=== PATIENT | male | born 2000 | race Caucasian/White ===

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

== ENCOUNTER → 2022-01-11 | Outpatient (CLI) | payer OTHER, SELFPAY ==
--- NOTE | 2022-01-11 16:26 | MRI_ITS ---
STUDY: MRI RIGHT ANKLE WITHOUT CONTRAST REASON FOR EXAM: Male, 21 years old. Pain TECHNIQUE: Standarized fat and water weighted pulse sequences were obtained in all 3 orthogonal plane without intravenous administration of contrast material. COMPARISON: None. FINDINGS: Normal subcutis adipose space. There is tenosynovitis of the posterior tibialis tendon sheath with an intrinsic normal tendon. Normal flexor digitorum longus tendon. There is tenosynovitis of the flexor hallucis longus tendon sheath, with an intrinsically normal tendon. Normal peroneus longus and brevis tendons. Normal tibialis anterior tendon. Normal extensor hallucis longus tendon. Normal extensor digitorum longus tendons. Normal Achilles tendon and teno-osseous insertion. Normal plantar fascia. Normal plantar calcaneal tubercles. Normal intrinsic muscles of the rearfoot. Normal distal tibiofibular syndesmotic ligamentous complex. Normal lateral ligamentous complex. Normal subtalar ligaments and sinus tarsi. Normal deltoid ligamentous complexes. Normal plantar calcaneonavicular (spring) ligament. Normal tibiotalar articulation. Normal talar dome. Normal subtalar articulations. Normal talonavicular articulation. Normal calcaneocuboid articulation. Normal navicular-cuneiform articulations. There is no abnormal contrast enhancement. MRI/Lower Ext Joint Only (Routine) IMPRESSION: There is tenosynovitis of the posterior tibialis tendon sheath with an intrinsic normal tendon. There is tenosynovitis of the flexor hallucis longus tendon sheath, with an intrinsically normal tendon. Electronically Signed: Pedro Nicolas MD at 18:42 EDT ,
== END | disposition home or self-care (01) ==
LOC: MRI 16:10
PROVIDERS: PCP Nurse Practitioner; Visit Provider Student in an Organized Health Care Education/Training Program
DX: M25.571 Pain in right ankle and joints of right foot (principal); M65.89 Other synovitis and tenosynovitis, multiple sites; S93.491A Sprain of other ligament of right ankle, initial encounter
CPT/HCPCS: 73721

== ENCOUNTER → 2022-04-25 | Outpatient (CLI) | payer OTHER, SELFPAY ==
--- NOTE | 2022-04-25 14:57 | MRI_ITS ---
STUDY: MRI LEFT KNEE REASON FOR EXAM: Male, 21 years old. Center of knee with sharp pain and aching MENISCAL TEAR TECHNIQUE: Standardized fat and water weighted pulse sequences were obtained in all 3 orthogonal planes. COMPARISON: MRI of the left knee dated September 16, 2020 FINDINGS: Mild intrasubstance swelling and signal abnormality is present at the root insertion of the posterior horn of medial meniscus. Normal body and posterior horn of the medial meniscus. Normal hyaline cartilage of the medial femorotibial compartment. Normal medial femoral condyle and tibial plateau. Normal medial collateral ligamentous complex (MCL). Normal distal semimembranosus, gracilis and semitendinosus tendons. Normal lateral meniscus. Normal hyaline cartilage of the lateral femorotibial compartment. Normal lateral femoral condyle and tibial plateau. Normal proximal tibiofibular articulation. Normal lateral collateral (fibular) ligament. Normal popliteus tendon. Normal biceps femoris tendon. Normal anterior cruciate ligament (ACL). Normal posterior cruciate ligament (PCL). There is a patella ellen deformity. Normal hyaline cartilage of the patellofemoral compartment. Normal medial and lateral patellar retinaculum. Normal quadriceps tendon. A small linear tear is present in the central to posterior fibers of the origin of the patellar tendon, with mild to moderate thickening of the surrounding an affected fibers. Normal remaining aspects of the patellar tendon. Normal Hoffa''s fat pad. Small joint effusion. Tiny Wilkerson''s cyst noted. No marrow edema or occult fracture or osteochondral defect is present. The soft tissues are unremarkable. The otherwise visualized osseous structures are unremarkable. MRI/Lower Ext Joint Only (Routine) IMPRESSION: 1. Patella ellen deformity/high riding patella. 2. Small tear with mild to moderate patellar tendinosis at the origin of the patellar tendon, unchanged from the prior study. 3. Mild intrasubstance swelling and signal abnormality is present at the root insertion of the posterior horn of medial meniscus. Normal body and posterior horn of the medial meniscus. Electronically Signed: Dex Whitley MD at 12:06 EDT ,
== END | disposition home or self-care (01) ==
LOC: MRI 14:47
PROVIDERS: PCP Nurse Practitioner; Visit Provider Orthopaedic Surgery
DX: S83.242A Other tear of medial meniscus, current injury, left knee, initial encounter (principal)
CPT/HCPCS: 73721

== ENCOUNTER 2022-06-27 06:00 | Day surgery (SDC) | payer OTHER, SELFPAY ==
[2022-06-27] VITALS (7 sets, daily range): BP systolic 121–149; BP diastolic 56–97; PULSE 62–73; RESP 16–18; TEMP 36.6–37; O2SAT 98–100; BMI 27.3
[2022-06-27] MEDS: Lactated Ringers 1,000 ML 15 ML IV (06:15)
--- NOTE | 2022-06-27 07:10 | HP.PCM_ITS ---
HPI - General HPI Narrative VERONICA ESQUIVEL, is a 21 M who presents for left knee arthroscopy. No changes to h and P. Consent updated. Left knee marked. Here with mom. OK to proceed. R#: [id number] Acct: [id number] Name:VERONICA CLAYTON Rep #: [id number] : 2000 ? ? Provider: Dr. Francois Hudson MD Age/Sex:? 21/M ? ? Location: [facility] [place] Status: Signed Intake Intake Visit Reasons:?knee pain Chief Complaint: Allergies No Known Allergies Allergy (Verified 05/11/22 14:12) Medications levocetirizine 5 mg tablet (Xyzal) 5 mg PO DAILY 09/08/20 [History Confirmed 05/11/22] PFSH Medical History?(Updated 05/11/22 @ 15:44 by Francois Hudson MD) Bilateral headaches Environmental allergies Patellar tendinitis, left knee Shoulder pain Superior labrum vkaltqaf-df-zeczfzlhi (SLAP) tear of right shoulder Tear of medial meniscus of left knee Surgical History? History of tonsillectomy and adenoidectomy History of tonsillectomy and adenoidectomy S/P nasal surgery Family History? Other Arthritis Hypertension Thyroid disorder Social History? Smoking Status:? Never smoker alcohol intake:? never substance use type:? does not use what type of physical activity do you participate in:? running and weight training frequency:? 5-6 times per week HPI knee pain Details: Parts of this documentation were recorded by a scribe, this documentation accurately reflects the service provided and the decisions made by me, Dr. Francois Hudson MD 05/11/22 [id number]. VERONICA EQSUIVEL is a 21 year old M here today for left knee pain. Notes reviewed from Dr. Mary. Started in the spring, playing pickup basketball, got bad in February. Pain is located anteriorly in the knee. Some pain on the medial side with activity. But more so aches and pain center of the knee, worse with stairs. 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 Not one injury. Swelling - not anything crazy. No locking up or hamming up. Worse with a certain bending. Worse the full deep knee bend. Mostly center, with twisting then medially.? He is trying some physical therapy strengthening as well as oral medications for this.? 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 He does have to do some occasional hard throwing.? He has to be down with extreme knee flexion a lot of the time. He does feel like the anterior knee pain resolved with a past right medial meniscus repair performed by Dr. Mary. In terms of the right shoulder he had a past a right shoulder arthroscopy circumferential labral repair including SLAP repair.? Apparently he has multijoint laxity he was having a bit of a loose shoulder before it feels a little bit tighter now but eventually loosened up as well worse with light throwing phases but does not frankly come out.? There is pain decreased velocity there. Ortho Exam General General: Yes no acute distress Neurologic: Yes alert and Yes oriented x3 Psychologic: Yes reasonable and appropriate Right Knee Patella Translation: 2 Left Knee Skin/Wound: Yes CDI, No ecchymosis, No erythema and No swelling Knee ROM: Yes ROM-Flexion 0-140 Examination: Yes med jt line tenderness, No Lat jt line tenderness, Yes TTP inf pole patella, No Crepitus, Yes Pain with flexion, No Zuleyma's Test, No Dial at 90, No Dial at 60, Yes TTP Patellar tendon, No TTP Tibial tubercle, No TTP Pes Anserine and No Illiotibial band tenderness Quad Atrophy: No Stability: NML: Anterior Drawer, NML: Lila, NML: Posterior Drawer, NML: Valgus 0, NML: Valgus 30, NML: Varus 0 and NML: Varus 30 Apprehension with Lateral Translation: No Patella Translation: 2 Patellar Tilt Normal: Yes Patella Grind: No KNEE: He does have some mild medial joint line tenderness in the mid aspect of the medial joint line but most of his pain seems to be centered at the proximal aspect of the patellar tendon along the anterior aspect of the knee and worsened with deep knee bending.? Normal sensation motor function of the foot foot is warm and well-perfused.? Quadriceps tendon appears strong.? No pain at the patella itself or at the quadriceps tendon insertion area.? There is little bit of a click with knee range of motion testing seeming to arise from the patellofemoral joint but otherwise it is tracking normally with no J sign. Right Shoulder Skin/Wound: Yes CDI, No ecchymosis, No erythema and No swelling Testing: Positive AROM-Forward Elevation 0-180, AROM-External Rotation at side 0-60, jerk and Ovid; Negative Hawkin's, Neer's, Speed's, TTP Biceps, TTP AC Joint, Drop Arm, Apprehension Test, Sulcus Sign, translation, empty can or Load and Shift SHOULDER: Negative apprehension test.? Negative anterior tutq-pbt-ejdbm test.? He had a little bit of a click with posterior jerk test I would say this is positive but not frankly loose posteriorly.? Strength in forward elevation and external rotation are strong 5/5 although circumduction with a posteriorly directed force related causing quite a bit of pain. Supplemental Info MR#:? [id number] Acct: [id number] Name:? VERONICA ESQUIVEL Rep #: [id number] :?? 2000 M 21 ? From:? ? Dex Whitley MD PCP: IGNACIO Ramirez ? Status: REG CLI Study: Lower Ext Joint Only (Routine) ? Date of Exam: 04/25/22 Exam# [id number] ? Ordering Dr:? Rajani Mary DO STUDY:? MRI LEFT KNEE REASON FOR EXAM:? Male, 21 years old.? Center of knee with sharp pain and aching MENISCAL TEAR TECHNIQUE:? Standardized fat and water weighted pulse sequences were obtained in all 3 orthogonal planes. COMPARISON:? MRI of the left knee dated September 16, 2020 FINDINGS: Mild intrasubstance swelling and signal abnormality is present at the root insertion of the posterior horn of medial meniscus.? Normal body and posterior horn of the medial meniscus.? Normal hyaline cartilage of the medial femorotibial compartment.? Normal medial femoral condyle and tibial plateau. Normal medial collateral ligamentous complex (MCL).? Normal distal semimembranosus, gracilis and semitendinosus tendons. Normal lateral meniscus.? Normal hyaline cartilage of the lateral femorotibial compartment.? Normal lateral femoral condyle and tibial plateau. Normal proximal tibiofibular articulation.? Normal lateral collateral (fibular) ligament.? Normal popliteus tendon.? Normal biceps femoris tendon. Normal anterior cruciate ligament (ACL).? Normal posterior cruciate ligament (PCL). 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 Normal hyaline cartilage of the patellofemoral compartment.? Normal medial and lateral patellar retinaculum. Normal quadriceps tendon.? A small linear tear is present in the central to posterior fibers of the origin of the patellar tendon, with mild to moderate thickening of the surrounding an affected fibers.? Normal remaining aspects of the patellar tendon.? Normal Hoffa''s fat pad. Small joint effusion.? Tiny Wilkerson''s cyst noted.? No marrow edema or occult fracture or osteochondral defect is present.? The soft tissues are unremarkable.? The otherwise visualized osseous structures are unremarkable. MRI/Lower Ext Joint Only (Routine) IMPRESSION: 1.? Patella ellen deformity/high riding patella. 2.? Small tear with mild to moderate patellar tendinosis at the origin of the patellar tendon, unchanged from the prior study. 3.? Mild intrasubstance swelling and signal abnormality is present at the root insertion of the posterior horn of medial meniscus.? Normal body and posterior horn of the medial meniscus. ? Electronically Signed: Dex Whitley MD at 12:06 EDT Reading Location ID and State: [facility] / [place] , Service support? , ? reviewd MRI personally, agree with interpretation.? There also seems to be a worsening of the partial undersurface tearing of the proximal aspect of the undersurface patellar tendon as compared to prior MRI from September 2020. I also reviewed a noncontrast MRI right shoulder no intra-articular dye this was taken on a 3 Nidhi magnet [facility] at the request of the his previous surgeon Dr. Mary. The report is fairly equivocal in terms of re- tear although there may be a small retear of the posterior labrum as well as re tear of the superior labrum at the biceps long head insertion indicating in my opinion likely re tear of the SLAP tear and failure of the repair.? There are multiple anchors that appear to be consistent with both repair of the anterior and posterior labrum as well as a SLAP repair.? Cartilage looks normal.? There is no obvious bone marrow edema to be consistent with recent subluxation or dislocations.? Bone quality appears abnormal no obvious bone loss of the glenoid or Hill-Sachs lesion.? 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 Coding Level of Care Code Off vis,new,level 4 Diagnoses Superior labrum xgogjgmb-lp-rojtpkebe (SLAP) tear of right shoulder? S43.431A Patellar tendinitis, left knee? M76.52 Tear of medial meniscus of left knee? S83.242A Time Spent (min) 45 Assessment and Plan Assessment and Plan (1) Superior labrum baxpbaug-qt-dnarpangg (SLAP) tear of right shoulder: ?Status:?Acute ?Plan: This 21-year-old male with sensations of loosening of his shoulder after circumferential labral repair he could have read tear or failure of the SLAP repair there.? Certainly this is very controversial in terms of what to do next in terms of the shoulder.? Even SLAP repair itself is controversial whether to perform this in throwing athletes.? Could consider right shoulder diagnostic arthroscopy possible revision repair of posterior anterior or superior labrum and or biceps tenodesis any of those things would be reasonable in this situation or trying to simply focus on rehabbing the shoulder is much as possible to avoid another period of 4-1/2 months of downtime.? We discussed all options and will go ahead with actually booking his left knee surgery. (2) Patellar tendinitis, left knee: ?Status:?Acute ?Plan: 21-year-old male with partial undersurface tearing of his patellar tendon pain from the anterior aspect of his knee as well as a possible medial meniscus tear with a medial sided joint line tenderness and some mechanical symptoms we discussed all options rest ice doing nothing anti-inflammatories physical therapy PRP injections as well as arthroscopy tendon debridement stimulation of a healing as well as addressing the medial meniscus tear with either repair or partial medial meniscectomy versus debridement.? He would like to go ahead with the left knee surgery I booked this for left knee arthroscopy, patellar tendon debridement stimulation of healing possible medial meniscus repair or partial meniscectomy.? He would like to the want to go ahead with this and in June we will submit for insurance company approval.? 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 Him and his mom understood had no further questions or concerns. Pros and cons risks and benefits were discussed with the patient including but not limited to infection, pain, stiffness, bleeding, damage to surrounding structures, neurovascular injury, recurrence or retear, failure or wear of hardware or fixation, instability, fracture, deep vein thrombosis and pulmonary embolism, anesthetic risks, patient dissatisfaction, need for further surgery and other risks.? Patient understood and wished to proceed with surgery, and signed the informed consent documentation. (3) Tear of medial meniscus of left knee: [facility] Medical History (Updated 06/25/22 @ 08:29 by Brunilda Esquivel) Environmental allergies Heartburn History of pain when walking Non-smoker Patellar tendinitis, left knee Shoulder pain Superior labrum izuqrapv-nr-mmmvsrzqd (SLAP) tear of right shoulder Tear of medial meniscus of left knee Thoracic outlet syndrome Home Medications levocetirizine 5 mg tablet (Xyzal) 5 mg PO DAILY 09/08/20 [History Last Taken Unknown] ascorbic acid (vitamin C) 1,000 mg chewable tablet 1 g PO DAILY 06/25/22 [History Last Taken Unknown] ibuprofen 800 mg tablet 800 mg PO Q6H PRN Pain 06/25/22 [History Last Taken Unknown] Allergy/AdvReac Type Severity Reaction Status Date / Time No Known Allergies Allergy Verified 06/27/22 06:23 Family History Other Arthritis Hypertension Thyroid disorder Surgical History (Updated 06/25/22 @ 08:29 by Brunilda Esquivel) History of medial meniscus repair of right knee History of tonsillectomy and adenoidectomy S/P nasal surgery Social History Smoking Status: Never smoker alcohol intake: never substance use type: does not use what type of physical activity do you participate in: running and weight training frequency: 5-6 times per week Vital Signs Vital Signs Vital Signs: 06/27/22 06:23 06/27/22 06:23 Temperature 97.8 F Temperature Source Temporal Pulse Rate 67 Respiratory Rate 18 Respiratory Pattern Normal Blood Pressure 133/94 H Blood Pressure Mean 107 Blood Pressure Source Monitor Blood Pressure Location Right Arm Pulse Ox 99 Oxygen Delivery Method Room Air Weight Weight: 196 lb 3.382 oz Body Mass Index (BMI) 27.3
[2022-06-27] MEDS: Epinephrine (1 mg/ml) 1 MG/ML VIAL (07:42)
[2022-06-27] MEDS: Cefazolin 2 GM in 0.9% Normal Saline 100 ML IV (07:42)
--- NOTE | 2022-06-27 08:22 | OP.PCM_ITS ---
Problems Associated Problem List Diagnoses (1) Patellar tendonitis of left knee: (2) Tear of medial meniscus of left knee: Report of Operation Date of Procedure: 06/27/22 Pre-Operative Diagnosis: left knee MM tear and patellar tendonitis Post-Operative Diagnosis: same Surgery/Procedure Performed:: left knee arthroscopy, medial meniscus repair, debridement patellar tendon Surgeon: Francois Hudson Type of Anesthesia: General and Local Anesthesiologist: Salvador Souza Estimated Blood Loss (mL): 10 Description of Procedure: Patient was brought to the operating room theater.? Placed supine on the operating room table.? All bony prominences appropriately padded.? SCD on the nonoperative side.? 2 g IV Ancef administered prior to the start of the procedure.? General anesthesia induced.? Stress positioner for the patient's left lower extremity.? Tourniquet applied to the thigh appropriately padded.? Left lower extremity prepped and draped in the usual sterile fashion with chlorhexidine-based prep solution allowing over 3 minutes drying time prior to draping.? Preoperative timeout performed to confirm the site patient and the surgery. Began by making standard anterolateral and anteromedial arthroscopy portals.? I examined the full intra-articular extent of the knee.? No loose bodies gutters normal.? Patellofemoral as well as medial lateral compartments appeared normal. Arthroscopy pictures taken and saved onto the system throughout the case. The small undersurface flap of the patellar tendon was identified and debrided through an accessory superomedial portal. I then used a spinal needle trephination at the origin of the patellar tendon to stimulate healing. Lateral meniscus was normal and stable to probing as was the ACL. Medial meniscus did appear to have increased excursion anteriorly with probing as well as a small amount of fraying and horizontal tear at the posterior aspect of the horn medial meniscus. A spinal needle trephination in this area as well as the meniscus rasp to prepare the capsule healing. I then used a [employer] reverse curved FasT-Fix all inside suture repair device to perform a horizontal mattress repair at the site of the tear. This was stable and solid to probing. Sutures cut short. Final arthroscopy pictures taken and saved onto the system. Tourniquet let down meticulous hemostasis achieved wound thoroughly irrigated subcutaneous portal closed with 3-0 Monocryl sutures 10 cc of quarter percent bupivacaine followed by Steri-Strips Adaptic 4 x 4 gauze abdominal pad dressing and sterile Juan Ramon bandage followed by a hinged knee brace appropriately placed with the leg in full extension. Patient woken up from the general anesthetic transferred off the operating room table and taken to postanesthetic care unit in stable condition. All sponge needle instrument counts were correct no complications. Plan for the patient we ightbearing as tolerated on crutches in full extension with passive range of motion of the knee 0 to 90 degrees under the direct supervision of physical for 6 weeks. Complications none Admit VTE Documentation VTE Present on Admission: No VTE Mechan Device Prophylaxis: SCD's Reason prophylaxis not ordered:: Treatment Not Indicated Procedures Musculoskeletal [id number]-29xxx: Other Procedure See Report
--- NOTE | 2022-06-27 08:28 | DCINST_ITS ---
Discharge Instructions Diet Discharge Diet: No restrictions Activity Discharge Activity: Use Crutches Additional Activity Instructions:: weight bearing as tolerated in full extension (straight) with knee brace, ok for passive ROM 0-90 with PT Dressing / Incision Call your doctor if your incision/area has: Continuous Slow Oozing, Sudden Increased Bleeding, Increased Pain/ Swelling, Increased Redness, Foul Smelling Discharge and Swelling at the incision site Change Dressing in: leave in place till F/U Follow Up Care Please Follow Up With: Francois Hudson MD When: 2 days Test Results: Test results from this visit will be discussed in further detail at your follow-up appointment, if applicable. Discharge Plan Admission Attending Provider: Francois Hudson Primary Care Provider: Luca Ryder NP Instructions Patient Instructions: After Knee Arthroscopy Discharge Orders/Prescriptions Prescriptions: New oxycodone-acetaminophen [Percocet] 5-325 mg tablet 1 tab PO Q4H MDD 6 PRN (Reason: pain) 7 Days Qty: 20 0RF No Action levocetirizine [Xyzal] 5 mg tablet 5 mg PO DAILY ibuprofen 800 mg Tablet 800 mg PO Q6H PRN (Reason: Pain) Vitamin C 1,000 mg Tablet,Chewable 1 g PO DAILY Referrals / Follow Up: Francois Hudson MD [Med Staff - Active Staff] - Luca Ryder NP, [employer] [Primary Care Provider] - Disposition Disposition (needs filled in before D/C Order can be placed): Home, Self Care
== END 2022-06-27 11:54 | disposition home or self-care (01) ==
LOC: SDC 06:01 → AC 06:02
PROVIDERS: PCP Nurse Practitioner; Referring Provider Orthopaedic Surgery Sports Medicine; Visit Provider Orthopaedic Surgery Sports Medicine
PROC: (CPT 29870; principal; 2022-06-27 07:10)
DX: S83.242A Other tear of medial meniscus, current injury, left knee, initial encounter (principal); M76.52 Patellar tendinitis, left knee; X58.XXXA Exposure to other specified factors, initial encounter; Y93.67 Activity, basketball
CPT/HCPCS: 29882; 01400; J7120; J2405

== ENCOUNTER 2022-09-13 16:30 | Outpatient (RCR) | payer OTHER, SELFPAY ==
--- NOTE | 2022-07-11 11:50 | HP.PTEVAL_ITS ---
Patient's Visit Information VERONICA TROTTER is a 21 year old M referred to Physical Therapy by Dr. Francois Hudson MD with a diagnosis of Left Meniscal Repair. Date of Evaluation: 07/11/22 Physical Therapist: Remedios Gracia DPT - Visit Plan Frequency: 2x /Week Duration: 4 Weeks Plan: Perform HEP- call if questions- no crutches at home- single or double outside due to poor weather conditions- will follow up with PT at 6 weeks. Left Medial Meniscus Repair. Per MD: WBAT in full extn and PROM only 0-90 degrees for 0-6 weeks post op (Aug 08). HEP Given IE: quad set, SLR, hamstring stretch - Subjective Left Sided Meniscal Tear and Patellar Tendon Debridement 06/27/22. Unsure of exactly when it happened- could have been baseball or basketball. He has had the same thing on his right in 2019 Dr. Mary. Got to college and he was running a lot and it got worse and worse. He has been wearing the brace since- he doesn't wear it sitting on his bed but when he is up and moving he wears it. He is sleeping in it. He is using crutches when he leaves his bedroom he is using his crutches. He reports that he is not currently having any pain in the knee. Last week he had some pain on Saturday but it went away quickly. Its been pretty good- Sleep: not disturbed. Does have some N/T in his foot but thinks its from a previous cut on his leg where the brace rubs. He did not give him any exercises to work on at home. He is going to [employer] in the spring so he will continue here for therapy. He is done playing baseball but now he is just going to school and wants to get back to normal activities and get back in the gym. 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 Fully I with all ADLs. Not taking and pain medications. Saw MD yesterday- happy with progress. No concerns. PMHx/Meds: no changes since surgery 06/27/22 at hospital - Objective Posture: fair throughout treatment. Gait: axillary crutches WBAT- TROM brace locked in extension- ambulation without axillary crutches in clinic was fair wi th decrease stance on left LE no pain. HR/TR: able. SLS: able with brace locked in extension. ROM: PROM: 0-90 degrees without resistance. Flex: HS: moderate, Gastroc: moderate. Observation: incision healing well no s/s of infection- no steri strips or sutures noted. Strength: Ankle: 5/5, Knee: Quad set good- SLR no lag, Hip: 4+/5. Girth: Patella: 40 cm 6 above: 54 cm - Balance/Special Test Scores Lower Extremity Functional Score: 32 - Goals Goal 1:: Patient will be I with HEP and progression Goal Time Frame: 12-16 Weeks Goal 2:: Patient will demo 0-120 degrees of left knee ROM (as allowed per MD) Goal Time Frame: 12-16 Weeks Goal 3:: Patient will demo equal quad girth to uninvolved LE (as allowed per MD) Goal Time Frame: 12-16 Weeks Goal 4:: Patient will ambulate >300 feet with no AD and no deviations Goal Time Frame: 12-16 Weeks Goal 5:: Patient will report 80% improvement Goal Time Frame: 12-16 Weeks - Rehabilitation Potential Physical Therapy Diagnosis: Patient presents s/p Left Meniscal Repair 06/25/22- he has decreased ROM, LE and core strength/stabilization, proprioception and flex leading to abnormal gait and dec ability to perform ADL's Rehabilitation Potential: Good - Anticipated Interventions Patient/Client Instruction: Educate patient on: Benefits of Fitness Program Therapeutic Exercise to Include: Strength training, Endurance training, Balance training, Coordination, Agility training, Body mechanics, Postural training, Flexibilty training, Gait and locomotor training, Neuromotor development, Dynamic Lumbar Stabilization, Violetta Exercises For the Purpose of:: To improve muscle performance and motor function TENS: Yes Cryotherapy (ice pack, ice massage): Yes Thermo therapy (hot pack): Yes Ultrasound (thermal/non thermal): No Thank you for the opportunity to evaluate your patient. For Medicare and Medicare HMO plans, please review the plan of care and approve it. It will need to be FAXED BACK to us at [phone] for Medicare purposes. For Medicare only, by signing this I certify the plan of care. Please let me know if there are questions or concerns regarding this plan of care. Physician Signature: Date:
--- NOTE | 2022-07-23 16:59 | HP.PTEVAL2_ITS ---
Patient's Visit Information VERONICA TROTTER is a 21 year old M referred to Physical Therapy by Dr. Francois Hudson MD with a diagnosis of PABLO UE THORACIC OUTLET SYNDROME. Date of Evaluation: 07/23/22 Physical Therapist: Deana Valentin PT, Cert MDT - Visit Plan Frequency: 2-3x /Week Duration: 4-6 Weeks Plan: POSTURE CORRECTION/STRENGTHENING, INSTRUCTION IN APPROPRIATE BODY MECHANICS AND ACTIVITY MODIFICATIONS. PABLO UE ROM, STRETCHING AND STRENGTHENING WITH FOCUS ON SCALENE STRETCHING AND 1ST RIB RELEASE. CONSIDER NECK RETRACTION ROM, NECK RETRACTION STRENGTHEING, PABLO SHLD T-BAND EXTERNAL ROTATION AND PEC STRETCHING. HEP INSTRUCTION. 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 PLAYING BASEBALL AT [employer] UNTIL KNEE INJURY FALL 2021. TRANSFERRED TO [employer] FOR SPRING 2022. DONE WITH BASEBALL. ALSO HAS H/O R SHLD SX FOR TORN LABRUM IN HIGH SCHOOL. Disability: NO. Present symptoms: PABLO UE NUMBNESS AND TINGLING RIGHT > LEFT. DENIES PABLO UE WEAKNESS. DENIES NECK PAIN. CONSTANT R SHLD PAIN (RE-TORE R LABRUM). PATIENT REPORTS THE NUMBNESS AND TINGLING SLOWLY MOVES DOWN HIS ARMS INTO HIS HANDS AND FINGERS WITH CERTAIN ACTIVITIES. SOMETIMES ONE ARM AT A TIME. SOMETIMES BOTH ARMS AT SAME TIME. HEADACHES ABOUT ONCE A WK FOR A DAY FROM UNKNOW CAUSE SINCE RE-INJURY OF R SHLD MAR 2022. Present since: SINCE 2018. HAVING SOME RIGHT UE SX'S EVEN BEFORE R SHLD INJURY. Pain Scale: Worst - 8/10 Least - 2/10. Currently: 2-3/10. Commenced as a result of: R SHLD INJURY AND RE-INJURY FROM BASEBALL. PABLO UE NUMBNESS AND TINGLING STARTED FOR NO APPARENT REASON. Worse: BEING ON PHONE IN BED, DRIVING, ANYTHING OVER- HEAD, LAYING WITH ARMS OVER-HEAD, SDLY - EITHER SIDE. 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 Better: WHEN ARMS ARE DOWN OR CHANGING POSITION. Disturbed sleep: YES. Previous history/Previous treatment: NONE. Dizziness: NO. Tinnitis: NO. Nausea: NO. Shortness of Breath: NO. Difficulty Swollowing: NO. Gait: USING ONE CRUTCH AND WEARING L KNEE BRACE S/P L KNEE MENISCUS REPAIR 12/14/22. Unexplained weight loss: NO. Imaging: ULTRASOUND 2019 R UE AND PABLO UE'S AGAIN JUN 2022 SHOWING PABLO UE THORACIC OUTLET SX L >R BUT RIGHT SX'S ARE GREATER LEFT. RECENT R SHLD MRI DX'ING NEW TEAR. NO NECK X-RAY OR MRI. PMH/Recent major surgery: SEE ABOVE. OTHER: HURT L KNEE BEFORE RE-HURT R SHLD. - Objective Objective: Sitting Posture/Standing Posture: POOR. Active Correction of posture: BETTER. Sensory deficit: PABLO UE LIGHT TOUCH SENSATION GROSSLY INTACT AND SYMMETRICAL. ROM deficit: PABLO UE'S WFL. Motor deficit: PABLO UE'S GROSSLY 5/5 WITH MMT'ING. R HAND DOMINANT WITH A RIGHT TRANSFORM[employer] STRENGTH OF 110 LBS AND LEFT 85 LBS. Reflexes: UNABLE TO ELICIT PABLO UE DTR'.S. Dural Signs: POSITIVE R UE. Cervical Mvmt Loss: Flex: NIL. Pro: NIL. Ext: MIN - PRODUCES R UE NUMBNESS/TINGLING. Ret: MIN TO MOD. RSB: MIN - PRODUCES R UE NUMBNESS/TINGLING. LSB: MIN. R Rot: NIL - PRODUCES R UE NUMBNESS/TINGLING. L Rot: NIL. Postural strength: FAIR. TREATMENT: NEUROMUSCULAR REEDUCATION - RETRAINING OF MVMT AND POSTURE FOR SITTING, LYING AND STANDING ACTIVITIES. INITIATED HEP WITH REP RET IS AND SCAP SQUEEZES X 10 TO 20 REPS EVERY ONE TO TWO HOURS TOLERATED. INSTRUCTED IN avoidance of PERIPHERALIZATION OF SX'S. PATIENT DEMONSTRATED/COMMUNICATED A GOOD UNDERSTANDING OF ALL INSTRUCTIONS AFTER GIVEN. - Goals Goal 1:: DECREASE C/O PABLO UE NUMBNESS AND TINGLING. Goal Time Frame: 4-6 Weeks Goal 2:: IMPROVE LIFTING, READING, WRITING, SLEEP AND REACHING FUNCTION. Goal Time Frame: 4-6 Weeks Goal 3:: INSTRUCT IN PROPHYLAXIS Goal Time Frame: 4-6 Weeks - Anticipated Interventions Patient/Client Instruction: Educate patient on: Condition, Plan of Care, Risk Factors For the Purpose of:: To improve self management Therapeutic Exercise to Include: Strength training, Body mechanics, Postural training, Flexibilty training, Scapular Strength/Stabilization For the Purpose of:: To decrease pain, To increase ROM, To improve muscle performance and motor function, To increase tolerance to activity/ condition/position, To improve ability of physical actions for home/community/work/leisure Manual Therapy Techniques to Include: Soft tissue mobilization Comment: JORGE For the Purpose of:: To increase ROM Thank you for the opportunity to evaluate your patient. For Medicare and Medicare HMO plans, please review the plan of care and approve it. It will need to be FAXED BACK to us at [phone] for Medicare purposes. For Medicare only, by signing this I certify the plan of care. Please let me know if there are questions or concerns regarding this plan of care. Physician Signature: Date:
--- NOTE | 2022-08-06 16:08 | HP.PTREVAL_ITS ---
Dr. Francois Hudson MD, It has been my pleasure to treat VERONICA TROTTER over the last 2 visits for Left Meniscal Repair. Please see the progress note below for an update on the physical therapy plan of care! Subjective: Goes back to work on Saturday (job is sitting and standing)- no more brace- continue PT. No pain in the knee. Patient feels his knee is 60% better. Objective/Function: Posture: fair throughout treatment. Gait: no brace and no deviation noted HR/TR: able. SLS: 15 sec with increased sway ROM: 0-125 degrees Flex: HS: moderate, Gastroc: moderate. Strength: Ankle: 5/5, Knee: Left: Extn: 54 Flexion: 50 Right: Extn 90 Flexion: 70 Hip: 4+/5. Girth: Patella: 38.5 cm 6 above: Left: 55 cm Right: 56.5 cm Plan Plan: 08/06/22: No restrictions- focus on LE and core strength/stabilization and proprioception. Perform HEP- call if questions- no crutches at home- single or double outside due to poor weather conditions- will follow up with PT at 6 weeks. Left Medial Meniscus Repair. Per MD: WBAT in full extn and PROM only 0- 90 degrees for 0-6 weeks post op (Aug 08). HEP Given IE: quad set, SLR, hamstring stretch Balance/Gait/Functional tests - Balance/Special Test Scores Oswestry Neck Score: 5 Lower Extremity Functional Score: 54 Goals Goal 1:: Patient will be I with HEP and progression Goal Time Frame: 12-16 Weeks Goal 2:: Patient will demo 0-120 degrees of left knee ROM (as allowed per MD) Goal Time Frame: 12-16 Weeks Goal 3:: Patient will demo equal quad girth to uninvolved LE (as allowed per MD) Goal Time Frame: 12-16 Weeks Goal 4:: Patient will ambulate >300 feet with no AD and no deviations Goal Time Frame: 12-16 Weeks Goal 5:: Patient will report 80% improvement Goal Time Frame: 12-16 Weeks Anticipated Interventions Patient/Client Instruction: Educate patient on: Benefits of Fitness Program Therapeutic Exercise to Include: Strength training, Endurance training, Balance training, Coordination, Agility training, Body mechanics, Postural training, Flexibilty training, Gait and locomotor training, Neuromotor development, Dynamic Lumbar Stabilization, Violetta Exercises For the Purpose of:: To improve muscle performance and motor function TENS: Yes Cryotherapy (ice pack, ice massage): Yes Thermo therapy (hot pack): Yes Ultrasound (thermal/non thermal): No Please do not hesitate to contact me at [phone] by phone or if you have questions or concerns regarding this new plan of care! Sincerely, CHRISTIAN MalloyT
--- NOTE | 2022-08-29 08:31 | HP.PT.NRP(2) ---
VERONICA TROTTER was seen in my office for initial evaluation on 07/23/22. The following Plan of Care was established for this patient: Initial Frequency: 2-3x /Week Initial Duration: 4-6 Weeks Plan from Re-Evaluation: POSTURE CORRECTION/STRENGTHENING, INSTRUCTION IN APPROPRIATE BODY MECHANICS AND ACTIVITY MODIFICATIONS. PABLO UE ROM, STRETCHING AND STRENGTHENING WITH FOCUS ON SCALENE STRETCHING AND 1ST RIB RELEASE. CONSIDER NECK RETRACTION ROM, NECK RETRACTION STRENGTHEING, PABLO SHLD T-BAND EXTERNAL ROTATION AND PEC STRETCHING. HEP INSTRUCTION. Patient/Client Instruction: Educate patient on: Condition, Plan of Care, Risk Factors For the Purpose of:: To improve self management Therapeutic Exercise to Include: Strength training, Body mechanics, Postural training, Flexibilty training, Scapular Strength/Stabilization For the Purpose of:: To decrease pain, To increase ROM, To improve muscle performance and motor function, To increase tolerance to activity/condition/position, To improve ability of physical actions for home/community/work/leisure Manual Therapy Techniques to Include: Soft tissue mobilization Comment: SCALENES For the Purpose of:: To increase ROM This patient was last seen in our office . Pertinent comments regarding their Physical therapy will appear below: This patient has not returned to Physical Therapy and is appropriate to return to MD for further follow-up as needed. At this point I will be discontinuing this patient from physical therapy. I would be happy to see this patient again in the future if found appropriate by the physician. Thank you! Deana Valentin, PT, Cert MDT
--- NOTE | 2022-09-13 16:41 | HP.PTDCSUM ---
It has been my pleasure to treat VERONICA TROTTER referred by Dr. Francois Hudson MD, with the diagnosis of Left Meniscal Repair for a total of 10 visit(s). Discharge Date: Please see the following information for a summary of their discharge status. Subjective: Patient feels his knee is 85-90% better- he is ready to be d/c and then will take a month off and start shoulder rehab. The only think he can't do is deep kneeling % Improvement: 90 Objective/Function: Posture: fair throughout treatment. Gait: no brace and no deviation noted HR/TR: able. SLS: 15 sec with increased sway ROM: 0-125 degrees Flex: HS: moderate, Gastroc: moderate. Strength: Ankle: 5/5, Knee: Left: Extn: 68.5 Flexion: 50.8 Right: Extn 83 Flexion: 63 Hip: 4+/5. Girth: Patella: 38.5 cm 6 above: Left: 56 cm Right: 56.5 cm Goal 1:: Patient will be I with HEP and progression Goal Progress: Goal Met Goal 2:: Patient will demo 0-120 degrees of left knee ROM (as allowed per MD) Goal Progress: Goal Met Goal 3:: Patient will demo equal quad girth to uninvolved LE (as allowed per MD) Goal Progress: Goal Met Goal 4:: Patient will ambulate >300 feet with no AD and no deviations Goal Progress: Goal Met Goal 5:: Patient will report 80% improvement Goal Progress: Goal Met Plan: 09/13/22: Discharge to I HEP. 08/06/22: No restrictions- focus on LE and core strength/stabilization and proprioception. Perform HEP- call if questions- no crutches at home- single or double outside due to poor weather conditions- will follow up with PT at 6 weeks. Left Medial Meniscus Repair. Per MD: WBAT in full extn and PROM only 0-90 degrees for 0-6 weeks post op (Aug 08). HEP Given IE: quad set, SLR, hamstring stretch If there are questions or concerns regarding this patient's physical therapy, please feel free to call me at [phone]. Thank you for the referral of this patient. Sincerely, Remedios Gracia, DPT Balance/Gait/Functional tests - Balance/Special Test Scores Oswestry Neck Score: 5 Lower Extremity Functional Score: 71
== END 2022-09-13 19:00 | disposition home or self-care (01) ==
LOC: PT 16:30
PROVIDERS: PCP Nurse Practitioner; Referring Provider Orthopaedic Surgery Sports Medicine; Visit Provider Orthopaedic Surgery Sports Medicine
DX: M76.52 Patellar tendinitis, left knee (principal); S83.242A Other tear of medial meniscus, current injury, left knee, initial encounter
CPT/HCPCS: 97110; 97112; 97140; 97161; 97162; 97164

== ENCOUNTER 2022-11-20 15:30 | Outpatient (RCR) | payer OTHER, SELFPAY ==
--- NOTE | 2022-10-09 18:53 | HP.PTEVAL_ITS ---
Patient's Visit Information VERONICA TROTTER is a 21 year old M referred to Physical Therapy by GAVIOTA VELÁZQUEZ with a diagnosis of s/p R shoulder surgery 09/06/22 labral debridement biceps tenodesis, SAD. Date of Evaluation: 10/09/22 Physical Therapist: Salvador Tao, DPT, OCS, CSCS - Visit Plan Frequency: 2-3x /Week Duration: 2 Months Plan: 2-3x/week for 6-8 weeks to start for :(pt is prom elbow only until doctor f/u due to intraarticular biceps tenodesis)Care to be taken with shoulder ROM also. next session please check PROM shoulder and if improved from today(130 flexion, 11 abduction, 25 er) then patinet can remain weekly until doctor(october) f/u due to limitations and precautions)...otherwise should increase to 3x/week if not improved. - Subjective New injury to r shoulder. Labral tear from baseball, been hurting since Se ptember of last year. Precaution: Sling for 6 weeks, off to shower. Doing pendulum swings. Pain 0 most of time, hurts playing video games 09/21 transiently. Repair 09/06/22. Sleeping well., sleeps recliner due to shoulder. Is done with baseball. Wants to lift eventually. needs to pull bow back to [place]. Basic aDLs with L arm slow but able. R labral repair 2019 - Pain R shoulder. Pain Intensity (Out of 10): 0 Pain Intensity Range: 0, 3 - Objective Walks in with sling on and dons and doffs I. cervical and scapular AROM WFL B. Elbow prom flexion full and without pain. active extension is full adn painfree. wrist and hand WNL. PROM shoulder R flexion 130, abduction 110, ext rotation 25 degrees. IR to 75 at 80 abduction. strength L UE not tested, r UE 4+/5. No problems or concerns with incisions. - Balance/Special Test Scores Quick DASH Score: 61.3625 - Goals Goal 1:: ST: Full PROM to 150 flexiona nd abduction and 50 ext rotation R shoulder without pain Goal Time Frame: 2-4 Weeks Goal 2:: LT: progress through phases shoulder rehab to full aROM as allowed by doctor Goal Time Frame: 4-6 Weeks Goal 3:: Sleep in bed wihtout discomfort Goal Time Frame: 4-6 Weeks Goal 4:: patinet feel back to normal home activities and ADLS Goal Time Frame: 4-6 Weeks Goal 5:: Plan to return to lifting Goal Time Frame: 6-8 Weeks Goal 6:: quickdash score 17 or better Goal Time Frame: 6-8 Weeks - Rehabilitation Potential Physical Therapy Diagnosis: Shoulder stiffness, pain and weakness post surgery Rehabilitation Potential: Good - Anticipated Interventions Patient/Client Instruction: Educate patient on: Condition, Plan of Care For the Purpose of:: To decrease pain, To increase ROM, To improve nutrient delivery to tissue, To improve muscle performance and motor function, To increase tolerance to activity/condition/position Therapeutic Exercise to Include: Passive ROM For the Purpose of:: To decrease pain, To increase ROM Manual Therapy Techniques to Include: Passive ROM For the Purpose of:: To increase ROM Thank you for the opportunity to evaluate your patient. For Medicare and Medicare HMO plans, please review the plan of care and approve it. It will need to be FAXED BACK to us at [phone] for Medicare purposes. For Medicare only, by signing this I certify the plan of care. Please let me know if there are questions or concerns regarding this plan of care. Physician Signature: Date:
--- NOTE | 2022-11-08 16:48 | HP.PTREVAL_ITS ---
GAVIOTA VELÁZQUEZ, It has been my pleasure to treat VERONICA TROTETR over the last 9 visits for s/p R shoulder surgery 09/06/22 labral debridement biceps tenodesis, SAD. Please see the progress note below for an update on the physical therapy plan of care! Subjective: Saw doctor and released to full strength. No pain lately. Activity : normal. HEP: using it. Sleeping Ok. Wants to go to [facility]. Enjoys lifting and wants to get back to it. Objective/Function: Full aROM B shoulders without pain today. R shoulder flexion 4- , abd 4- and er 4- and IR 4 vs L atr 4+, no pain. Looking good and wants a little help with strength progression before d/c which is apporpriate Plan Plan: 2x/week for 2-3 weeks for progression of strength on machines to db and other. Pt will eventually end up at [facility] gym to work out after d/c. Please progress with pics in therapy and list over next 2 weeks.(pull down, shext press, shoulder press, other desired ex, overhead IR/ER, shoulder stabs and WB ex. to tolerance). New goal is I with strengthening without pain for shoulder and is good prognosis to be met in 2 -3 weeks. Balance/Gait/Functional tests - Balance/Special Test Scores Quick DASH Score: 4.5450 Goals Goal 1:: ST: Full PROM to 150 flexiona nd abduction and 50 ext rotation R shoulder without pain Goal Time Frame: 2-4 Weeks Goal Progress: Goal Met Goal 2:: LT: progress through phases shoulder rehab to full aROM as allowed by doctor Goal Time Frame: 4-6 Weeks Goal Progress: Goal Met Goal 3:: Sleep in bed wihtout discomfort Goal Time Frame: 4-6 Weeks Goal Progress: Goal Met Goal 4:: patinet feel back to normal home activities and ADLS Goal Time Frame: 4-6 Weeks Goal Progress: Goal Met Goal 5:: Plan to return to lifting Goal Time Frame: 6-8 Weeks Goal 6:: quickdash score 17 or better Goal Time Frame: 6-8 Weeks Goal Progress: Goal Met Anticipated Interventions Patient/Client Instruction: Educate patient on: Condition, Plan of Care For the Purpose of:: To decrease pain, To increase ROM, To improve nutrient delivery to tissue, To improve muscle performance and motor function, To increase tolerance to activity/condition/position Therapeutic Exercise to Include: Passive ROM For the Purpose of:: To decrease pain, To increase ROM Manual Therapy Techniques to Include: Passive ROM For the Purpose of:: To increase ROM Please do not hesitate to contact me at [phone] by phone or if you have questions or concerns regarding this new plan of care! Sincerely, Salvador Tao, CHRISTIANT, OCS, CSCS
--- NOTE | 2022-11-20 18:52 | HP.PTDCSUM ---
It has been my pleasure to treat VERONICA TROTTER referred by GAVIOTA VELÁZQUEZ, with the diagnosis of s/p R shoulder surgery 09/06/22 labral debridement biceps tenodesis, SAD for a total of 12 visit(s). Discharge Date: 11/20/22 Please see the following information for a summary of their discharge status. Subjective: Still no pain - doing real good. States he wants to make today his last session. Little sore saturday from moving/lifting heavy rocks the previous day. R shoulder. Pain Intensity (Out of 10): 0 % Improvement: 99 Objective/Function: Reviewed current gym program one last time today and provided pt a copy when finished [facility]. Pt to see PT next for d/c. Goal 1:: ST: Full PROM to 150 flexiona nd abduction and 50 ext rotation R shoulder without pain Goal Progress: Goal Met Goal 2:: LT: progress through phases shoulder rehab to full aROM as allowed by doctor Goal Progress: Goal Met Goal 3:: Sleep in bed wihtout discomfort Goal Progress: Goal Met Goal 4:: patinet feel back to normal home activities and ADLS Goal Progress: Goal Met Goal 5:: Plan to return to lifting Goal Progress: Goal Met Goal 6:: quickdash score 17 or better Goal Progress: Goal Met Plan: New goal of strengthening I is met and patient wishes to be done with PT prior to full recheck, Says ROM is full and good with strength and goals met. D/C to HEP Discharge Comments: [place] ovalles in gym If there are questions or concerns regarding this patient's physical therapy, please feel free to call me at [phone]. Thank you for the referral of this patient. Sincerely, Salvador Tao, DPT, OCS, CSCS Balance/Gait/Functional tests - Balance/Special Test Scores Quick DASH Score: 0
== END 2022-11-20 19:00 | disposition home or self-care (01) ==
LOC: PT 15:30
PROVIDERS: PCP Nurse Practitioner
DX: Z98.890 Other specified postprocedural states (principal)
CPT/HCPCS: 97110; 97140; 97161; 97164

== ENCOUNTER → 2023-08-21 | Outpatient (CLI) | payer OTHER, SELFPAY ==
[2023-08-14 12:27] LABS: Color, Urine Yellow (Yellow); Glucose, Dipstick Normal (Normal); Ketone-Dipstick Negative (Negative); Leukocyte Esterase-Dipstick Negative /ul (Negative); Nitrite-Dipstick Negative (Negative); Occult Blood-Urine Negative /ul (Negative); Protein-Dipstick Negative (Negative); Urine Bilirubin Dipstick Negative (Negative); Urine Clarity Clear (Clear); Urine Urobilinogen Normal (Normal)
[2023-08-14 12:30] LABS: Absolute Lymphocyte Count 1.35 X10^3/uL (0.83-4.51); Absolute Neutrophil Count 5.2 X10^3/uL (2.0-7.7); Basophil# 0.04 X10^3/uL; Basophil% 0.5 % (0-1); Eosinophil# 0.07 X10^3/uL; Hematocrit 48.2 % (40-54); Hemoglobin 16.9 g/dL (13.0-16.5); Lymphocyte # 1.35 X10^3/ul (0.83-4.51); Lymphocyte % 18.5 % (19-41); Mean Corp Hgb Conc 35.1 g/dL (32-36); Mean Corpuscular Hgb 29.1 pg (27.0-32.0); Mean Platelet Vol. 9.7 fl (6.2-12.0); Monocyte# 0.64 X10^3/uL; Monocyte% 8.8 % (0-10); NRBC Flagged by Analyzer 0 % (0-5); Neutrophil # 5.15 X10^3/uL (2.7-7.7); Neutrophil % 70.7 % (47-70); Platelet Count 273 K/mm3 (150-450); RBC Distribution Width CV 11.8 % (11.6-14.6); RBC Distribution Width SD 35.2 fl (35.1-43.9); Red Blood Count 5.81 M/mm3 (4.6-6.2); White Blood Count 7.3 K/mm3 (4.4-11.0)
[2023-08-14 13:13] LABS: ALB/GLOB Ratio 1.3 RATIO (0.9-2.4); AST(SGOT) 39 U/L (15-37); Alanine Aminotransfer ALT/SGPT 44 U/L (16-61); Albumin, Serum 4.4 g/dL (3.2-5.0); Alkaline Phosphatase 83 U/L (45-117); Anion Gap 4 (5-15); BUN 24 mg/dL (7-18); Calcium,Total 9.6 mg/dL (8.5-10.1); Chloride 104 mmol/L (98-107); EST Glomerular Filtration Rate 101 mL/min (>60); Est Glom Filt Rate - Afr Amer 122 mL/min (>60); Globulin 3.5 g/dL (2.2-4.2); Glucose 80 mg/dL (74-106); Potassium 3.6 mmol/L (3.5-5.1); Protein, Total 7.9 g/dL (6.4-8.2); Sodium Level 134 mmol/L (136-145); Thyroid Stim Hormone (TSH) 2.03 uIU/mL (0.358-3.74)
== END | disposition home or self-care (01) ==
LOC: BFHLAB 15:19
PROVIDERS: PCP Family Medicine; Visit Provider Family Medicine
DX: Z00.00 Encounter for general adult medical examination without abnormal findings (principal); I10 Essential (primary) hypertension
CPT/HCPCS: 36415; 80053; 81002; 84443; 85025

== ENCOUNTER → 2023-10-31 | Outpatient (CLI) | payer OTHER, SELFPAY ==
--- NOTE | 2023-10-31 08:54 | ART_ITS ---
Reason For Study: Evaluate for TOS Procedure A bilateral upper extremity continuous wave Doppler with analog waveform analysis and segmental pressures. Left Segmental Pressures Left brachial= 140mmHg. Left radial= 143mmHg. Left ulnar= 139mmHg. Left digit = 130 mmHg. The left brachial waveforms are triphasic. The left radial waveforms are triphasic. The left ulnar waveforms are triphasic. Right Segmental Pressures Right brachial= 138mmHg. Right radial= 140mmHg. Right ulnar= 142mmHg. Right digit = 121 mmHg. The right brachial waveforms are triphasic. The right radial waveforms are triphasic. The right ulnar waveforms are triphasic. Indices The right wrist-brachial index is 1.01. The right digital-brachial index is 0.86. The left wrist- brachial index is 1.02. The left digital-brachial index is 0.93. VL/Upper Extremity Arterial Study Interpretation Summary Right wrist-brachial index 1.01 , normal. Doppler/PVR waveforms of the right ar m normal at rest. Significantly diminished waveforms with maneuvers indicating dynamic compressio n. Left wrist-brachial index 1.02 , normal. Doppler/PVR waveforms of the left ankl e normal at rest. Mildly diminished waveforms with maneuvers Ordering Physician: Tiffanie Ann Referring Physician: Marcial Ordonez Performed By: Yury Andrade RVT and Student
== END | disposition home or self-care (01) ==
PROVIDERS: PCP Family Medicine; Referring Provider Physician Assistant; Visit Provider Physician Assistant
DX: G54.0 Brachial plexus disorders (principal)
CPT/HCPCS: 93923

== ENCOUNTER → 2023-11-15 | Outpatient (CLI) | payer OTHER, SELFPAY ==
--- NOTE | 2023-11-15 17:59 | CT_ITS ---
STUDY: CTA NECK WITH CONTRAST REASON FOR EXAM: Male, 22 years old. Arterial TOS/subclavian artery aneurysm -- Please place IV for contrast bolus in the L arm RADIATION DOSAGE (If Supplied By Facility): CTDIvol = ( 27.36 ) mGy, DLP = ( 636.13 ) mGycm TECHNIQUE: CT angiography with multi-detector data acquisition was performed from the aortic arch to the skull base following intravenous administration of IV 100mL Isovue-370. MIP images were reconstructed from the axial data set. Post-processing of the angiographic images was performed, with multiplanar reformation and 3D reconstruction. Individualized dose optimization techniques were used for this CT. COMPARISON: None. FINDINGS: AORTIC ARCH: Normal visualized aortic arch. Normal origins of the brachiocephalic, left common carotid, and left subclavian arteries. RIGHT CAROTID ARTERIES: Normal right common carotid artery (CCA). Normal right common carotid bulb. Normal origin of the right internal carotid (ICA) artery without a hemodynamically significant stenosis. Normal visualized cervical portion of the right internal carotid artery. Normal origin of the right external carotid artery (ECA). LEFT CAROTID ARTERIES: Normal left common carotid artery (CCA). Normal left common carotid bulb. Normal origin of the left internal carotid (ICA) artery without a hemodynamically significant stenosis. Normal visualized cervical portion of the left internal carotid artery. Normal origin of the left external carotid artery (ECA). VERTEBRAL ARTERIES: Normal bilateral vertebral arteries. CT/CTA Neck W/WO Contrast IMPRESSION: Normal bilateral cervical carotid and vertebral arteries. Electronically Signed: Vince Mai MD at 20:51 EDT ,
== END | disposition home or self-care (01) ==
PROVIDERS: PCP Family Medicine; Referring Provider Physician Assistant; Visit Provider Physician Assistant
DX: G54.0 Brachial plexus disorders (principal)
CPT/HCPCS: 70498; Q9967

== ENCOUNTER → 2024-08-03 | Outpatient (CLI) | payer OTHER, SELFPAY | END | disposition home or self-care (01) | LOC: LABSPEC 15:31 | PROVIDERS: PCP Family Medicine; Referring Provider Otolaryngology; Visit Provider Otolaryngology | DX: J32.9 Chronic sinusitis, unspecified (principal) | CPT/HCPCS: 87070; 87205 ==